=== PATIENT | female | born 1995 | race Caucasian/White ===

== ENCOUNTER → 2018-09-26 | Outpatient (CLI) | payer OTHER ==
[~2018-09-26] MED LIST: Bentyl20 MG PO; CAPSAICIN HOT1 EACH TOP; FAMO20 PO
[2018-09-26 18:42] LABS: BASOPHILS ABSOLUTE AUTO 0.04 K/mm3 (0.00-0.23); BASOPHILS PERCENT AUTO 1 % (0-2); EOSINOPHILS ABSOLUTE AUTO 0.15 K/mm3 (0.00-0.68); EOSINOPHILS PERCENT AUTO 2 % (0-6); IMMATURE GRAN ABSOLUTE AUTO 0.06 K/mm3 (0.00-0.10); IMMATURE GRAN PERCENT AUTO 1 % (0-1); LYMPHOCYTES ABSOLUTE AUTO 2.22 K/mm3 (0.84-5.20); LYMPHOCYTES PERCENT AUTO 27 % (21-46); MONOCYTES ABSOLUTE AUTO 0.61 K/mm3 (0.16-1.47); MONOCYTES PERCENT AUTO 8 % (4-13); Mean Corpuscular HGB 30.7 pg (26.0-34.0); Mean Corpuscular HGB Conc 34.8 g/dL (31.5-36.5); Mean Corpuscular Volume 88 fL (80-100); Mean Platelet Volume 10.5 fL (9.1-12.4); NEUTROPHILS ABSOLUTE AUTO 5.03 K/mm3 (1.96-9.15); NEUTROPHILS PERCENT AUTO 62 % (41-73); Platelet Count 291 K/mm3 (150-400); RDW Coefficient Variation 12.7 % (11.7-14.2); RDW Standard Deviation 41.2 fL (35.1-46.3); Red Blood Cell Count 5.21 M/mm3 (3.80-5.20); White Blood Cell Count 8.11 K/mm3 (4.00-11.30)
[2018-09-26 18:45] LABS: Anion Gap 10 mmol/L (6-16); Blood Urea Nitrogen 13 mg/dL (8-24); Bun/Creatinine Ratio 15.1 (12.0-20.0); CO2, Blood 27 mmol/L (21-32); Calcium, Blood 8.4 mg/dL (8.5-10.1); Chloride, Blood 103 mmol/L (98-108); Creatinine, Blood 0.86 mg/dL (0.40-1.00); Glomerular Filtration Rate >60 (60-); Glucose, Blood 99 mg/dL (70-99); Potassium, Blood 3.6 mmol/L (3.5-5.5); Sodium, Blood 140 mmol/L (136-145)
== END | disposition home or self-care (01) ==
LOC: LAB SHORT 18:37 → LAB EV 18:37
PROVIDERS: Physician Assistant Surgical
DX: R10.32 Left lower quadrant pain (principal)
CPT/HCPCS: 80048; 85025

== ENCOUNTER 2018-10-06 08:43 | Emergency (ER) | payer OTHER ==
[~2018-10-06] VITALS: Ht 167.6 cm; Wt 67.1 kg
[2018-10-06] MEDS ORDERED: FAMO20 PO (09:30)
[2018-10-06 09:49] LABS: BASOPHILS ABSOLUTE AUTO 0.02 K/mm3 (0.00-0.23); BASOPHILS PERCENT AUTO 0 % (0-2); EOSINOPHILS PERCENT AUTO 2 % (0-6); Hematocrit 42.9 % (33.0-51.0); Hemoglobin 14.6 g/dL (11.5-16.0); IMMATURE GRAN ABSOLUTE AUTO 0.02 K/mm3 (0.00-0.10); IMMATURE GRAN PERCENT AUTO 0 % (0-1); LYMPHOCYTES ABSOLUTE AUTO 1.44 K/mm3 (0.84-5.20); LYMPHOCYTES PERCENT AUTO 30 % (21-46); MONOCYTES ABSOLUTE AUTO 0.41 K/mm3 (0.16-1.47); MONOCYTES PERCENT AUTO 8 % (4-13); Mean Corpuscular HGB 31.1 pg (26.0-34.0); Mean Platelet Volume 10.4 fL (9.1-12.4); NEUTROPHILS ABSOLUTE AUTO 2.87 K/mm3 (1.96-9.15); NEUTROPHILS PERCENT AUTO 59 % (41-73); Platelet Count 237 K/mm3 (150-400); RDW Coefficient Variation 12.1 % (11.7-14.2); White Blood Cell Count 4.86 K/mm3 (4.00-11.30)
[2018-10-06 09:52] LABS: Mean Corpuscular Volume 91 fL (80-100)
[2018-10-06 09:59] LABS: Source, Urine Clean Catch
[2018-10-06 10:00] LABS: Alanine Aminotransfer (ALT/SGP 33 U/L (12-78); Albumin/Globulin Ratio 1.2 (0.8-1.8); Alk Phos 81 U/L (50-136); Anion Gap 7 mmol/L (6-16); Aspartate Aminotrans (AST/SGOT 20 U/L (12-37); Bilirubin, Total 0.7 mg/dL (0.1-1.0); Blood Urea Nitrogen 12 mg/dL (8-24); Bun/Creatinine Ratio 22.4 (12.0-20.0); CO2, Blood 23 mmol/L (21-32); Calcium, Blood 8.6 mg/dL (8.5-10.1); Chloride, Blood 111 mmol/L (98-108); Creatinine, Blood 0.54 mg/dL (0.40-1.00); Globulin, Blood 3.4 g/dL (2.2-4.0); Glomerular Filtration Rate >60 (60-); Glucose, Blood 99 mg/dL (70-99); Potassium, Blood 3.9 mmol/L (3.5-5.5); Sodium, Blood 141 mmol/L (136-145); Total Protein, Blood 7.4 g/dL (6.4-8.2)
[2018-10-06 10:02] LABS: Bilirubin, Urine Neg (Neg); Blood, Urine 1+ (Neg); Glucose Qualitative, Urine Neg (Neg); Ketones, Urine Neg (Neg); Leukocyte Esterase, Urine Neg (Neg); Nitrite, Urine Neg (Neg); Protein, Urine 1+ (Neg); Urobilinogen, Urine 1+ (Normal)
[2018-10-06 10:29] LABS: Appearance, Urine Hazy (Clear); Bacteria Few /hpf; Color, Urine Yellow (P-Yellow); Red Blood Cells, Urine 0-2 /hpf (0-2); Squamous Epithelial Cells Mod /hpf (Few); White Blood Cells, Urine Not Seen /hpf (0-5)
[2018-10-06] MEDS ORDERED: Bentyl20 MG PO (11:48)
[2018-10-07] MEDS ORDERED: CAPSAICIN HOT1 EACH TOP (11:00)
== END 2018-10-06 12:13 | disposition home or self-care (01) ==
LOC: ER 08:43
PROVIDERS: Emergency Medicine
DX: R10.9 Unspecified abdominal pain (principal); F17.200 Nicotine dependence, unspecified, uncomplicated; Z79.899 Other long term (current) drug therapy
CPT/HCPCS: 36415; 74177; 76856; 80053; 81001; 81025; 83690; 85025; 87086; 96374-59; 96375; 99284-25; J1170; J2405; Q9967

== ENCOUNTER 2018-10-07 08:15 | Emergency (ER) | payer OTHER ==
[~2018-10-07] VITALS: Ht 170.2 cm; Wt 63.5 kg
[~2018-10-07 08:15] MED LIST changes: -CAPSAICIN HOT1 EACH TOP
[2018-10-07 08:48] LABS: Source, Urine Clean Catch
[2018-10-07 08:52] LABS: Bilirubin, Urine Neg (Neg); Blood, Urine 2+ (Neg); Glucose Qualitative, Urine Neg (Neg); Ketones, Urine Neg (Neg); Leukocyte Esterase, Urine 1+ (Neg); Nitrite, Urine Neg (Neg); Protein, Urine Neg (Neg); Urobilinogen, Urine 1+ (Normal)
[2018-10-07 08:59] LABS: Appearance, Urine Clear (Clear); Color, Urine Yellow (P-Yellow)
[2018-10-07 09:02] LABS: Squamous Epithelial Cells Mod /hpf (Few)
[2018-10-07 09:03] LABS: Bacteria Mod /hpf
[2018-10-07 09:12] LABS: BASOPHILS ABSOLUTE AUTO 0.02 K/mm3 (0.00-0.23); BASOPHILS PERCENT AUTO 0 % (0-2); EOSINOPHILS ABSOLUTE AUTO 0.08 K/mm3 (0.00-0.68); EOSINOPHILS PERCENT AUTO 2 % (0-6); Hematocrit 43.8 % (33.0-51.0); Hemoglobin 15.2 g/dL (11.5-16.0); IMMATURE GRAN ABSOLUTE AUTO 0.02 K/mm3 (0.00-0.10); IMMATURE GRAN PERCENT AUTO 0 % (0-1); LYMPHOCYTES ABSOLUTE AUTO 1.32 K/mm3 (0.84-5.20); LYMPHOCYTES PERCENT AUTO 29 % (21-46); MONOCYTES ABSOLUTE AUTO 0.33 K/mm3 (0.16-1.47); MONOCYTES PERCENT AUTO 7 % (4-13); Mean Corpuscular HGB 30.6 pg (26.0-34.0); Mean Corpuscular HGB Conc 34.7 g/dL (31.5-36.5); Mean Platelet Volume 10.3 fL (9.1-12.4); NEUTROPHILS PERCENT AUTO 61 % (41-73); Platelet Count 248 K/mm3 (150-400); RDW Coefficient Variation 12.1 % (11.7-14.2); RDW Standard Deviation 39.8 fL (35.1-46.3); Red Blood Cell Count 4.96 M/mm3 (3.80-5.20); White Blood Cell Count 4.57 K/mm3 (4.00-11.30)
[2018-10-07 09:17] LABS: Mean Corpuscular Volume 88 fL (80-100)
[2018-10-07 09:35] LABS: Alanine Aminotransfer (ALT/SGP 33 U/L (12-78); Albumin, Blood 4.2 g/dL (3.4-5.0); Albumin/Globulin Ratio 1.2 (0.8-1.8); Alk Phos 83 U/L (50-136); Anion Gap 12 mmol/L (6-16); Aspartate Aminotrans (AST/SGOT 16 U/L (12-37); Bilirubin, Total 0.6 mg/dL (0.1-1.0); Blood Urea Nitrogen 14 mg/dL (8-24); Bun/Creatinine Ratio 22.3 (12.0-20.0); CO2, Blood 23 mmol/L (21-32); Calcium, Blood 8.9 mg/dL (8.5-10.1); Chloride, Blood 106 mmol/L (98-108); Creatinine, Blood 0.63 mg/dL (0.40-1.00); Globulin, Blood 3.6 g/dL (2.2-4.0); Glomerular Filtration Rate >60 (60-); Glucose, Blood 96 mg/dL (70-99); Potassium, Blood 3.8 mmol/L (3.5-5.5); Sodium, Blood 141 mmol/L (136-145); Total Protein, Blood 7.8 g/dL (6.4-8.2)
[2018-10-07] MEDS ORDERED: CAPSAICIN HOT1 EACH TOP (11:00)
[2018-10-08] MEDS ORDERED: Carafate1 GM/10 ML PO (08:50)
[2018-10-08] MEDS ORDERED: Norco 5-325 Ta1 EACH PO (09:38)
== END 2018-10-07 11:15 | disposition home or self-care (01) ==
LOC: ER 08:15
PROVIDERS: Emergency Medicine
DX: R10.9 Unspecified abdominal pain (principal); F17.200 Nicotine dependence, unspecified, uncomplicated; Z79.899 Other long term (current) drug therapy
CPT/HCPCS: 36415; 76705; 80053; 81001; 83690; 85025; 87086; 96361; 96374; 96375; 99284-25; J1170; J1630; J1885; J2405; J7120

== ENCOUNTER 2018-10-08 07:36 | Emergency (ER) | payer OTHER ==
[~2018-10-08] VITALS: Ht 167.6 cm; Wt 67.1 kg
[~2018-10-08 07:36] MED LIST changes: +CAPSAICIN HOT1 EACH TOP
[2018-10-08] MEDS ORDERED: Carafate1 GM/10 ML PO (08:50)
[2018-10-08] MEDS ORDERED: Norco 5-325 Ta1 EACH PO (09:38)
== END 2018-10-08 10:41 | disposition home or self-care (01) ==
LOC: ER 07:36
DX: K29.70 Gastritis, unspecified, without bleeding (principal); F17.200 Nicotine dependence, unspecified, uncomplicated; Z79.899 Other long term (current) drug therapy
CPT/HCPCS: J1170

== ENCOUNTER → 2018-10-09 | Outpatient (CLI) | payer OTHER ==
[~2018-10-09] MED LIST changes: +Carafate1 GM/10 ML PO; +Norco 5-325 Ta1 EACH PO
[2018-10-10 21:07] LABS: T-TRANSGLUTAMINASE (TTG) IGA <2 U/mL (0-3); T-TRANSGLUTAMINASE (TTG) IGG 2 U/mL (0-5)
== END | disposition home or self-care (01) ==
LOC: LAB SHORT 09:35 → LAB EV 09:35
PROVIDERS: General Practice
DX: R10.9 Unspecified abdominal pain (principal)
CPT/HCPCS: 83516

== ENCOUNTER → 2018-10-11 | Outpatient (CLI) | payer OTHER ==
[2018-10-11 19:14] LABS: Adenovirus F 40/41 Not Detected (NOT DETECT); Astrovirus Not Detected (NOT DETECT); Campylobacter Sp Not Detected (NOT DETECT); Cryptosporidium Not Detected (NOT DETECT); Cyclospora Cayetanensis Not Detected (NOT DETECT); E. Coli O157 Not Detected (NOT DETECT); Entamoeba Histolytica Not Detected (NOT DETECT); Enteroaggregative E. coli-EAEC Not Detected (NOT DETECT); Enteropathogenic E. coli-EPEC Not Detected (NOT DETECT); Enterotoxigenic E. coli-ETEC Not Detected (NOT DETECT); Giardia Lamblia Not Detected (NOT DETECT); Norovirus GI/GII Not Detected (NOT DETECT); Plesiomonas Shigelloides Not Detected (NOT DETECT); Rotavirus A Not Detected (NOT DETECT); Salmonella Sp Not Detected (NOT DETECT); Sapovirus Not Detected (NOT DETECT); Shiga Toxin-prod E. coli-STEC Not Detected (NOT DETECT); Shigella/Enteroin E. coli-EIEC Not Detected (NOT DETECT); Vibrio Cholerae Not Detected (NOT DETECT); Vibrio Sp Not Detected (NOT DETECT); Yersinia Enterocolitica Not Detected (NOT DETECT)
== END | disposition home or self-care (01) ==
LOC: LAB SHORT 15:07 → LAB EV 15:07
PROVIDERS: General Practice
DX: R19.7 Diarrhea, unspecified (principal)
CPT/HCPCS: 87507

== ENCOUNTER 2018-10-27 05:48 | Emergency (ER) | payer OTHER ==
[~2018-10-27] VITALS: Ht 167.6 cm; Wt 66.2 kg
[2018-10-27 07:31] LABS: Source, Urine Clean Catch
[2018-10-27 07:40] LABS: BASOPHILS ABSOLUTE AUTO 0.03 K/mm3 (0.00-0.23); BASOPHILS PERCENT AUTO 0 % (0-2); EOSINOPHILS ABSOLUTE AUTO 0.02 K/mm3 (0.00-0.68); EOSINOPHILS PERCENT AUTO 0 % (0-6); Hematocrit 45.3 % (33.0-51.0); Hemoglobin 15.7 g/dL (11.5-16.0); IMMATURE GRAN ABSOLUTE AUTO 0.05 K/mm3 (0.00-0.10); IMMATURE GRAN PERCENT AUTO 0 % (0-1); LYMPHOCYTES ABSOLUTE AUTO 1.23 K/mm3 (0.84-5.20); LYMPHOCYTES PERCENT AUTO 11 % (21-46); MONOCYTES ABSOLUTE AUTO 0.43 K/mm3 (0.16-1.47); MONOCYTES PERCENT AUTO 4 % (4-13); Mean Corpuscular HGB 30.7 pg (26.0-34.0); Mean Corpuscular HGB Conc 34.7 g/dL (31.5-36.5); Mean Corpuscular Volume 89 fL (80-100); Mean Platelet Volume 10.5 fL (9.1-12.4); NEUTROPHILS ABSOLUTE AUTO 9.71 K/mm3 (1.96-9.15); NEUTROPHILS PERCENT AUTO 85 % (41-73); Platelet Count 252 K/mm3 (150-400); RDW Coefficient Variation 12.3 % (11.7-14.2); Red Blood Cell Count 5.11 M/mm3 (3.80-5.20); White Blood Cell Count 11.47 K/mm3 (4.00-11.30)
[2018-10-27 07:41] LABS: Appearance, Urine Clear (Clear); Bilirubin, Urine Neg (Neg); Blood, Urine 1+ (Neg); Color, Urine Yellow (P-Yellow); Glucose Qualitative, Urine Neg (Neg); Ketones, Urine 4+ (Neg); Leukocyte Esterase, Urine 1+ (Neg); Nitrite, Urine Neg (Neg); Protein, Urine 2+ (Neg); Specific Gravity, Urine 1.015 (1.003-1.022); Urobilinogen, Urine 2+ (Normal)
[2018-10-27] MEDS ORDERED: SERT50 PO (07:41)
[2018-10-27 07:57] LABS: Alanine Aminotransfer (ALT/SGP 27 U/L (12-78); Albumin, Blood 4.7 g/dL (3.4-5.0); Albumin/Globulin Ratio 1.3 (0.8-1.8); Alk Phos 88 U/L (50-136); Anion Gap 8 mmol/L (6-16); Aspartate Aminotrans (AST/SGOT 23 U/L (12-37); Bilirubin, Total 0.9 mg/dL (0.1-1.0); Blood Urea Nitrogen 11 mg/dL (8-24); CO2, Blood 25 mmol/L (21-32); Calcium, Blood 9.2 mg/dL (8.5-10.1); Chloride, Blood 108 mmol/L (98-108); Creatinine, Blood 0.48 mg/dL (0.40-1.00); Globulin, Blood 3.6 g/dL (2.2-4.0); Glomerular Filtration Rate >60 (60-); Glucose, Blood 81 mg/dL (70-99); Sodium, Blood 141 mmol/L (136-145); Total Protein, Blood 8.3 g/dL (6.4-8.2)
[2018-10-27 08:02] LABS: Red Blood Cells, Urine 0-2 /hpf (0-2); Squamous Epithelial Cells Rare /hpf (Few); White Blood Cells, Urine 0-2 /hpf (0-5)
[2018-10-27 08:03] LABS: Bacteria Rare /hpf; Mucus Mod (0-Heavy)
[2018-10-27] MEDS ORDERED: PROM25 PO (10:07)
== END 2018-10-27 10:19 | disposition home or self-care (01) ==
LOC: ER 05:48
PROVIDERS: Emergency Medicine
DX: R10.32 Left lower quadrant pain (principal); K92.0 Hematemesis; Z88.8 Allergy status to other drugs, medicaments and biological substances; Z79.899 Other long term (current) drug therapy; F17.200 Nicotine dependence, unspecified, uncomplicated
CPT/HCPCS: 36415; 80053; 81001; 81025; 82272; 83690; 85025; 87086; 96361; 96374; 96375; 99284-25; J1200; J2405; J2765; J7120

== ENCOUNTER 2018-11-06 13:15 | Day surgery (SDC) | payer OTHER ==
[~2018-11-06] VITALS: Ht 167.6 cm; Wt 66.8 kg
[~2018-11-06 13:15] MED LIST changes: +PROM25 PO; +SERT50 PO
[2018-11-06] MEDS ORDERED: Sudogest30 MG (13:41)
[2018-11-06] MEDS ORDERED: Bentyl10 MG (13:42)
[2018-11-06] MEDS ORDERED: GABA100 (13:42)
--- NOTE | 2018-11-06 15:45 | NUR ---
11/06/18 1545 Thelma Gilbert PT. REFUSED P.O. PT. VERBALIZES FEELING LIKE SOMETHING WAS DONE BUT DIDN'T REALLY C/O ANY SORE THROAT.
== END 2018-11-06 15:30 | disposition home or self-care (01) ==
LOC: ORSCSDS 13:15
PROVIDERS: Student in an Organized Health Care Education/Training Program
PROC: 0DB68ZX Excision of Stomach, Via Natural or Artificial Opening Endoscopic, Diagnostic (ICD-10-PCS; principal; 2018-11-06 15:00)
PROC: 0DB98ZX Excision of Duodenum, Via Natural or Artificial Opening Endoscopic, Diagnostic (ICD-10-PCS; principal; 2018-11-06 15:00)
DX: R10.9 Unspecified abdominal pain (principal); R14.0 Abdominal distension (gaseous); R19.7 Diarrhea, unspecified; F32.9 Major depressive disorder, single episode, unspecified; F17.210 Nicotine dependence, cigarettes, uncomplicated; Z79.899 Other long term (current) drug therapy
CPT/HCPCS: 88305; 88342; J2704; J7120

== ENCOUNTER 2018-11-23 09:41 | Emergency (ER) | payer OTHER ==
[~2018-11-23] VITALS: Ht 167.6 cm; Wt 63.5 kg
[~2018-11-23 09:41] MED LIST changes: +Bentyl10 MG; +GABA100; +Sudogest30 MG
[2018-11-23 10:54] LABS: BASOPHILS ABSOLUTE AUTO 0.02 K/mm3 (0.00-0.23); BASOPHILS PERCENT AUTO 0 % (0-2); EOSINOPHILS ABSOLUTE AUTO 0.04 K/mm3 (0.00-0.68); EOSINOPHILS PERCENT AUTO 0 % (0-6); Hematocrit 48.9 % (33.0-51.0); Hemoglobin 16.7 g/dL (11.5-16.0); IMMATURE GRAN ABSOLUTE AUTO 0.04 K/mm3 (0.00-0.10); IMMATURE GRAN PERCENT AUTO 0 % (0-1); LYMPHOCYTES ABSOLUTE AUTO 1.07 K/mm3 (0.84-5.20); LYMPHOCYTES PERCENT AUTO 12 % (21-46); MONOCYTES PERCENT AUTO 4 % (4-13); Mean Corpuscular HGB 30.6 pg (26.0-34.0); Mean Corpuscular HGB Conc 34.2 g/dL (31.5-36.5); Mean Corpuscular Volume 90 fL (80-100); Mean Platelet Volume 10.9 fL (9.1-12.4); NEUTROPHILS ABSOLUTE AUTO 7.57 K/mm3 (1.96-9.15); NEUTROPHILS PERCENT AUTO 83 % (41-73); Platelet Count 253 K/mm3 (150-400); RDW Coefficient Variation 12.5 % (11.7-14.2); RDW Standard Deviation 40.9 fL (35.1-46.3); Red Blood Cell Count 5.45 M/mm3 (3.80-5.20); White Blood Cell Count 9.14 K/mm3 (4.00-11.30)
[2018-11-23 11:25] LABS: Alanine Aminotransfer (ALT/SGP 21 U/L (12-78); Albumin, Blood 4.5 g/dL (3.4-5.0); Albumin/Globulin Ratio 1.2 (0.8-1.8); Alk Phos 95 U/L (50-136); Anion Gap 8 mmol/L (6-16); Aspartate Aminotrans (AST/SGOT 21 U/L (12-37); Bilirubin, Total 1.2 mg/dL (0.1-1.0); Blood Urea Nitrogen 8 mg/dL (8-24); Bun/Creatinine Ratio 13.8 (12.0-20.0); CO2, Blood 24 mmol/L (21-32); Calcium, Blood 9.2 mg/dL (8.5-10.1); Chloride, Blood 108 mmol/L (98-108); Creatinine, Blood 0.58 mg/dL (0.40-1.00); Globulin, Blood 3.8 g/dL (2.2-4.0); Glomerular Filtration Rate >60 (60-); Glucose, Blood 81 mg/dL (70-99); Potassium, Blood 4.3 mmol/L (3.5-5.5); Sodium, Blood 140 mmol/L (136-145); Total Protein, Blood 8.3 g/dL (6.4-8.2)
[2018-11-23 12:27] LABS: Source, Urine Clean Catch
[2018-11-23 12:30] LABS: Blood, Urine 1+ (Neg); Glucose Qualitative, Urine Neg (Neg); Ketones, Urine 4+ (Neg); Leukocyte Esterase, Urine 1+ (Neg); Nitrite, Urine Neg (Neg); Protein, Urine 1+ (Neg); Specific Gravity, Urine 1.015 (1.003-1.022); Urobilinogen, Urine 2+ (Normal)
[2018-11-23 12:44] LABS: Bilirubin, Urine 1+ (Neg)
[2018-11-23 12:45] LABS: Appearance, Urine Clear (Clear); Color, Urine Yellow (P-Yellow)
[2018-11-23 12:49] LABS: Bacteria Mod /hpf; Mucus Light (0-Heavy); Red Blood Cells, Urine 0-2 /hpf (0-2); Squamous Epithelial Cells Few /hpf (Few)
[2018-11-24] MEDS ORDERED: Bentyl20 MG PO (10:47)
[2018-11-24] MEDS ORDERED: IBUP400 PO (10:47)
[2018-11-24] MEDS ORDERED: MIRALAX17 GM PO (10:47)
== END 2018-11-23 13:34 | disposition left against medical advice (07) ==
LOC: ER 09:41
PROVIDERS: Emergency Medicine
DX: Z53.21 Procedure and treatment not carried out due to patient leaving prior to being seen by health care provider (principal)
CPT/HCPCS: 36415; 80053; 81001; 81025; 83690; 85025; 87086

== ENCOUNTER 2018-11-24 08:47 | Emergency (ER) | payer OTHER ==
[~2018-11-24] VITALS: Ht 167.6 cm; Wt 63.5 kg
[2018-11-24] MEDS ORDERED: IBUP400 PO (10:47)
[2018-11-24] MEDS ORDERED: Bentyl20 MG PO (10:47)
[2018-11-24] MEDS ORDERED: MIRALAX17 GM PO (10:47)
[2018-11-25] MEDS ORDERED: PROMETHAZINE (20:51)
[2018-11-25] MEDS ORDERED: DICYCLOMINE (20:52)
[2018-11-25] MEDS ORDERED: HYDHCL25 PO (23:06)
== END 2018-11-24 10:54 | disposition home or self-care (01) ==
LOC: ER 08:47
DX: R10.9 Unspecified abdominal pain (principal); G89.29 Other chronic pain; F32.9 Major depressive disorder, single episode, unspecified; F17.200 Nicotine dependence, unspecified, uncomplicated; Z79.899 Other long term (current) drug therapy; Z88.8 Allergy status to other drugs, medicaments and biological substances
CPT/HCPCS: 99283

== ENCOUNTER 2018-11-24 21:44 | Emergency (ER) | payer OTHER ==
[~2018-11-24] VITALS: Ht 167.6 cm; Wt 63.5 kg
[~2018-11-24 21:44] MED LIST changes: +IBUP400 PO; +MIRALAX17 GM PO
[2018-11-25] MEDS ORDERED: PROMETHAZINE (20:51)
[2018-11-25] MEDS ORDERED: DICYCLOMINE (20:52)
[2018-11-25] MEDS ORDERED: HYDHCL25 PO (23:06)
== END 2018-11-24 23:39 | disposition home or self-care (01) ==
LOC: ER 21:44
DX: R10.9 Unspecified abdominal pain (principal); G89.29 Other chronic pain; F32.9 Major depressive disorder, single episode, unspecified; F17.200 Nicotine dependence, unspecified, uncomplicated; Z79.899 Other long term (current) drug therapy; Z88.8 Allergy status to other drugs, medicaments and biological substances
CPT/HCPCS: 96372; 99283-25; J1885; J2550

== ENCOUNTER 2018-11-25 20:24 | Emergency (ER) | payer OTHER ==
[~2018-11-25] VITALS: Ht 167.6 cm; Wt 62.1 kg
[2018-11-25] MEDS ORDERED: PROMETHAZINE (20:51)
[2018-11-25] MEDS ORDERED: DICYCLOMINE (20:52)
[2018-11-25 21:22] LABS: BASOPHILS ABSOLUTE AUTO 0.04 K/mm3 (0.00-0.23); BASOPHILS PERCENT AUTO 1 % (0-2); EOSINOPHILS ABSOLUTE AUTO 0.06 K/mm3 (0.00-0.68); EOSINOPHILS PERCENT AUTO 1 % (0-6); Hemoglobin 16.1 g/dL (11.5-16.0); IMMATURE GRAN ABSOLUTE AUTO 0.03 K/mm3 (0.00-0.10); IMMATURE GRAN PERCENT AUTO 0 % (0-1); LYMPHOCYTES PERCENT AUTO 21 % (21-46); MONOCYTES ABSOLUTE AUTO 0.56 K/mm3 (0.16-1.47); MONOCYTES PERCENT AUTO 7 % (4-13); Mean Corpuscular HGB 30.7 pg (26.0-34.0); Mean Corpuscular HGB Conc 34.3 g/dL (31.5-36.5); Mean Corpuscular Volume 90 fL (80-100); Mean Platelet Volume 10.9 fL (9.1-12.4); NEUTROPHILS PERCENT AUTO 71 % (41-73); Platelet Count 250 K/mm3 (150-400); RDW Coefficient Variation 12.4 % (11.7-14.2); RDW Standard Deviation 40.6 fL (35.1-46.3); Red Blood Cell Count 5.25 M/mm3 (3.80-5.20); White Blood Cell Count 8.09 K/mm3 (4.00-11.30)
[2018-11-25 21:35] LABS: Alanine Aminotransfer (ALT/SGP 27 U/L (12-78); Albumin, Blood 4.8 g/dL (3.4-5.0); Albumin/Globulin Ratio 1.5 (0.8-1.8); Alk Phos 93 U/L (50-136); Anion Gap 7 mmol/L (6-16); Aspartate Aminotrans (AST/SGOT 40 U/L (12-37); Bilirubin, Total 0.6 mg/dL (0.1-1.0); Blood Urea Nitrogen 17 mg/dL (8-24); Bun/Creatinine Ratio 23.1 (12.0-20.0); CO2, Blood 25 mmol/L (21-32); Calcium, Blood 9.2 mg/dL (8.5-10.1); Chloride, Blood 109 mmol/L (98-108); Creatinine, Blood 0.74 mg/dL (0.40-1.00); Globulin, Blood 3.3 g/dL (2.2-4.0); Glomerular Filtration Rate >60 (60-); Glucose, Blood 93 mg/dL (70-99); Potassium, Blood 3.3 mmol/L (3.5-5.5); Sodium, Blood 141 mmol/L (136-145); Total Protein, Blood 8.1 g/dL (6.4-8.2)
[2018-11-25 21:36] LABS: Source, Urine Clean Catch
[2018-11-25 21:45] LABS: Bilirubin, Urine Neg (Neg); Blood, Urine 2+ (Neg); Glucose Qualitative, Urine Neg (Neg); Ketones, Urine 2+ (Neg); Leukocyte Esterase, Urine 1+ (Neg); Nitrite, Urine Neg (Neg); Protein, Urine 1+ (Neg); Urobilinogen, Urine 1+ (Normal)
[2018-11-25 21:54] LABS: Appearance, Urine Clear (Clear); Color, Urine Yellow (P-Yellow)
[2018-11-25 21:55] LABS: Red Blood Cells, Urine 0-2 /hpf (0-2)
[2018-11-25 21:56] LABS: Bacteria Many /hpf; Hyaline Casts 0-2 /lpf (0-2); Mucus Heavy (0-Heavy); Squamous Epithelial Cells Mod /hpf (Few)
[2018-11-25] MEDS ORDERED: HYDHCL25 PO (23:06)
== END 2018-11-25 23:44 | disposition home or self-care (01) ==
LOC: ER 20:24
PROVIDERS: Physician Assistant
DX: R10.9 Unspecified abdominal pain (principal); G89.29 Other chronic pain; F32.9 Major depressive disorder, single episode, unspecified; F17.200 Nicotine dependence, unspecified, uncomplicated; Z79.899 Other long term (current) drug therapy; Z88.8 Allergy status to other drugs, medicaments and biological substances
CPT/HCPCS: 36415; 74176; 80053; 81001; 81025; 83690; 85025; 87086; 96361; 96374; 96375; 99284-25; A9270-GY; J1885; J2270; J7030